=== PATIENT | male | born 1990 | race Caucasian/White ===

== ENCOUNTER 2017-02-07 07:17 | Emergency (ER) | payer MEDICAID ==
[2017-02-07 07:34] VITALS: BMI 27.2
[2017-02-07 07:37] VITALS: BP 131/87; PULSE 98; RESP 16; TEMP 98.3; O2SAT 96
--- NOTE | 2017-02-07 08:16 | C.PDOC ---
History Of Present Illness 26 y/o male presents to the ED requesting alcohol detox. Last drink this morning. Pt has no physical complaints at this time. Chief Complaint (Nursing): Substance Abuse History Per: Patient History/Exam Limitations: no limitations Suicide/Self Injury Attempted (Context): None Modifying Factor(s): Alcohol Severity: Mild Involuntary Hold By: None Recent travel outside of the [place]: No Past Medical History Reviewed: Historical Data, Nursing Documentation, Vital Signs Vital Signs: Last Vital Signs Temp 98.3 F 02/07/17 07:34 Pulse 98 H 02/07/17 07:34 Resp 16 02/07/17 07:34 BP 131/87 02/07/17 07:34 Pulse Ox 96 02/07/17 08:17 - Medical History PMH: Asthma, HTN - [facility] Procedures APPLICATION OF SPLINT (04/25/15) CLOSURE SKIN & SUBCUTANEOUS NEC (06/13/14) Family History: States: Unknown Family Hx - Social History Hx Tobacco Use: No Hx Alcohol Use: Yes (Daily) Hx Substance Use: No - Immunization History Hx Tetanus Toxoid Vaccination: No Hx Influenza Vaccination: No Hx Pneumococcal Vaccination: No Review Of Systems Except As Marked, All Systems Reviewed And Found Negative. Constitutional: Negative for: Fever Cardiovascular: Negative for: Chest Pain Respiratory: Negative for: Shortness of Breath Gastrointestinal: Negative for: Vomiting Neurological: Negative for: Headache Physical Exam - Physical Exam Appears: Non-toxic, No Acute Distress Skin: Warm, Dry, No Rash Head: Atraumatic, Normacephalic Neck: Normal ROM Chest: Symmetrical Cardiovascular: Rhythm Regular, No Murmur Respiratory: Normal Breath Sounds, No Rales, No Rhonchi, No Wheezing Extremity: Normal ROM Extremity: Bilateral: Atraumatic Neurological/Psych: Oriented x3 Gait: Steady ED Course And Treatment O2 Sat by Pulse Oximetry: 96 (on room air) Pulse Ox Interpretation: Normal Medical Decision Making Medical Decision Making: Spoke to [facility], no detox beds available at this time. Disposition - Disposition Referrals: Joie Flaherty, [Non-Staff] - Disposition: HOME/ ROUTINE Disposition Time: 07:50 Condition: STABLE Additional Instructions: Thank you for letting us take care of you today. Your provider was Dr. Esquivel. You were treated for alcohol dependence. The emergency medical care you received today was directed at your acute symptoms. If you were prescribed any medication, please fill it and take as directed. It may take several days for your symptoms to resolve. Return to the Emergency Department if your symptoms worsen, do not improve, or if you have any other problems. Please contact your doctor or call one of the physicians/clinics you have been referred to that are listed on the Patient Visit Information form that is included in your discharge packet. Bring any paperwork you were given at discharge with you along with any medications you are taking to your follow up visit. Our treatment cannot replace ongoing medical care by a primary care provider (PCP) outside of the emergency department. Thank you for allowing the [facility] team to be part of your care today. Please use the phone list of detox services in the area to inquire about bed availability. Instructions: Alcohol Dependence (ED) - Clinical Impression Clinical Impression: Alcohol dependence - Scribe Statement The provider has reviewed the documentation as recorded by the Jacquelyn Dodge Provider Attestation: All medical record entries made by the Jacquelyn were at my direction and personally dictated by me. I have reviewed the chart and agree that the record accurately reflects my personal performance of the history, physical exam, medical decision making, and the department course for this patient. I have also personally directed, reviewed, and agree with the discharge instructions and disposition.
== END 2017-02-07 08:00 | disposition home or self-care (01) ==
LOC: C.ER 07:17
DX: F10.20 Alcohol dependence, uncomplicated (principal); Y90.9 Presence of alcohol in blood, level not specified